=== PATIENT | male | born 1965 | race Caucasian/White ===

== ENCOUNTER → 2019-08-09 09:30 | Outpatient (CLI) | payer MEDICARE, MEDICAID, SELFPAY ==
--- NOTE | 2019-08-09 09:37 | US_ITS ---
APPROVED REPORT Exam Type: Lower Extremity Segmental Pressures Network Support Specialist: Rylee Hdez RDCS Indications Claudication: Rest Pain: Numbness/Tingling PAD Current Smoker History of Smoking Pressures/Indices Right Indices Left Indices Brachial 126.00 mmHg Brachial 129.00 mmHg Low Thigh 90.00 mmHg 0.70 Low Thigh 77.00 mmHg 0.60 Calf 64.00 mmHg 0.50 Calf 46.00 mmHg 0.36 Ankle(PT) 40.00 mmHg 0.31 Ankle(PT) 35.00 mmHg 0.27 Ankle(DP) 86.00 mmHg 0.67 Ankle(DP) 34.00 mmHg 0.26 Digit 46.00 mmHg 0.36 Digit 24.00 mmHg 0.19 Findings R JILLIAN .3 L JILLIAN .3 R TBI .4 L TBI .2 DIMINISHED PULSES AND WAVEFORMS CARDIOLOGY CALLED RESULTS Conclusion Low bilateral JILLIAN suggesting severe arterial disease Electronically signed by : Freddy Watkins MD 08/09/2019 19:02:57
== END ==
PROVIDERS: Visit Provider Internal Medicine
DX: I70.213 Atherosclerosis of native arteries of extremities with intermittent claudication, bilateral legs (principal)
CPT/HCPCS: 93923

== ENCOUNTER 2019-12-20 08:57 | Day surgery (SDC) | payer MEDICARE, MEDICAID, SELFPAY ==
[2019-12-20] VITALS (18 sets, daily range): BP systolic 95–123; BP diastolic 56–81; PULSE 55–79; RESP 16; TEMP 36.8; O2SAT 92–100; BMI 26.9
--- NOTE | 2019-12-20 | IR_ITS ---
APPROVED REPORT Patient Location: Outpatient [facility] Worker: CHUCK Mobley RT (R) PROCEDURES Catheter placed in the abdominal aorta Abdominal aortography Repositioning of the catheter in the abdominal aorta Lateral iliofemoral runoff INDICATION Peripheral artery disease, [place] class III-IV claudication left leg, Known peripheral artery stents in the aortoiliac area Informed consent was obtained prior to the procedure. COMPLICATIONS none Estimated Blood Loss: less than 10 mls TECHNIQUE 1% lidocaine used anesthetize the right groin the right femoral artery was accessed via the Salinger technique and a 5 Mong[place]ian sheath this patient the right femoral artery. A pigtail catheter was placed in the abdominal aorta and abdominal aortography was performed. The catheter was then repositioned and bilateral iliofemoral runoff was performed. At the end of the procedure the apparatus was removed the patient was transferred to the postop holding area in stable condition for sheath removal ANGIOGRAPHIC RESULTS The bilateral renal arteries are singular and normal The infrarenal abdominal aorta is calcified atheromatous with diffuse 30% stenosis The right common iliac artery has a stent in its mid segment which is widely patent free of in-stent restenosis. It transitions nicely into the external iliac artery which also has a stent which is widely patent with mild in-stent restenosis. The internal iliac artery is patent. The right common femoral artery has mild [id number] atheromatous plaque. The profunda femoris artery is widely patent. The right superficial femoral artery is ostially occluded and occluded throughout its entire course. It reconstitutes at the popliteal level from profunda femoris collaterals. The popliteal artery has a mid vessel 30% stenosis. Distally there appears to be three-vessel runoff below the knee. The left common iliac artery is calcified has a proximal 30% stenosis. The left internal iliac artery is patent. The left external iliac artery has a stent in its mid segment which is widely patent with excellent proximal distal transitioning and mild in-stent restenosis. The left common femoral artery has an eccentric 40 to 50% stenosis. The left superficial femoral artery is proximally occluded and is densely calcified throughout its entire course. The left profunda femoris artery is widely patent and collateralizes a severely diseased proximal and mid vessel popliteal artery. The midportion of the popliteal artery is small caliber but is patent with mild atheromatous plaque. Distally the anterior tibialis artery has ostial and proximal high-grade greater than 70% stenoses. This is a small caliber vessel. The peroneal artery is also subtotally occluded proximally as is the left posterior tibialis artery. 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 Recommend medical management. The superficial femoral arteries are small caliber severely diffusely diseased and long-term patency would be abysmal. Because of the very poor long-term patency I do not recommend any form of revascularization of the left superficial femoral arteries. 2. Patient must discontinue tobacco usage and engage in an aggressive physical therapy program in order to salvage his legs 3. Recommend Xarelto 2.5 twice
[2019-12-20 09:43] LABS: Basophils # 0.1 K/mm3 (0-0.2); Basophils % 0.5 % (0.1-2.0); Eosinophils # 0.3 K/mm3 (0.0-0.4); Eosinophils % 2.8 % (0.1-12.0); Hematocrit 42.1 % (42.0-52.0); Hemoglobin 14.1 g/dL (14.1-18.0); Lymphocytes # 3.5 K/mm3 (0.7-4.5); Lymphocytes % 36.2 % (10-50); Mean Corpuscular HGB Conc 33.4 g/dL (31.8-35.4); Mean Corpuscular Hemoglobin 29.9 pg (27.0-31.2); Mean Corpuscular Volume 89.6 fl (80-94); Mean Platelet Volume 7.6 fl (7.4-10.4); Monocytes # 0.4 K/mm3 (0.1-1.0); Monocytes % 4.4 % (1.7-9.3); Neutrophils # 5.5 K/mm3 (1.8-7.8); Platelet Count 246 K/mm3 (142-424); Red Cell Distribution Width 14.1 % (11.5-17.5); White Blood Count 9.8 K/mm3 (4.8-10.8)
[2019-12-20 09:53] LABS: Chloride 104 mmol/L (98-107); Sodium 136 mmol/L (136-145)
[2019-12-20 09:54] LABS: Potassium 4.1 mmoL/L (3.5-5.1)
[2019-12-20 09:57] LABS: Anion Gap 11.1 mEq/L (5-15); Blood Urea Nitrogen 12 mg/dl (9-20); Calcium 9.5 mg/dl (8.4-10.2); Carbon Dioxide 25 mmol/L (22.0-30.0); Creatinine Clearance Estimated 66 mL/min (50-200); Estimated Glomerular Filt Rate 63 ml/min (>60); GFR (African American) 76 ML/MIN (>60); Glucose 113 mg/dl (74-100)
== END 2019-12-20 15:00 | disposition home or self-care (01) ==
LOC: CATHLAB 08:59
PROVIDERS: PCP Family Medicine; Visit Provider Internal Medicine
DX: I70.223 Atherosclerosis of native arteries of extremities with rest pain, bilateral legs (principal); I25.10 Atherosclerotic heart disease of native coronary artery without angina pectoris; Z72.0 Tobacco use; T82.856A Stenosis of peripheral vascular stent, initial encounter; Z79.01 Long term (current) use of anticoagulants; Z95.820 Peripheral vascular angioplasty status with implants and grafts; I10 Essential (primary) hypertension; I77.1 Stricture of artery
CPT/HCPCS: 36252; 75716; 80048; 85025; 99152; C1725; C1769; C1894; J1644; Q9966

== ENCOUNTER → 2020-01-20 06:51 | Outpatient (CLI) | payer MEDICARE, MEDICAID, SELFPAY ==
--- NOTE | 2020-01-20 06:59 | NM_ITS ---
APPROVED REPORT Exam: Nuclear Stress Test Indication: short of breath..fatigue Patient Location: Outpatient Stress Tech: Lolis Apple OR Tech:Bree MusaCHUCK RT(R)(N) Ht: 5 ft 2 in Wt: 140 lbs HR: 63 bpm BP: 131/70 mmHg BSA: 1.64 m2 BMI: 25.6 History: short of breath..fatigue.. hx of bilateral leg stents Procedure: Patient received a 0.4 mg of intravenous Lexiscan, resting heart rate 63 bpm, resting blood pressure 131/70 mmHg, with Lexiscan maximum heart rate achived was 106 bpm which is Less than 85 % of the maximum predicted heart rate and blood pressure was 106/70 mmHg. With Lexiscan, patient denied any complaint of chest pain. Electrocardiogram Resting electrocardiogram showed sinus rhythm, with Lexiscan there is less than 1.[address] segment depression noted from the baseline EKG. The EKG portion of the Lexiscan is nondiagnostic. Cardiac Stress and Resting SPECT Images: Cardiac Stress and Resting SPECT images were obtained using technetium 99m Myoview 30.4 mCi stress and 10.18 mCi at rest. Gated SPECT with analysis of segmental wall motion and calculation of the ejection fraction also done. Cardiac stress and resting SPECT images show uniform myocardial activity without segmental perfusion abnormality, computer derived ejection fraction is 50% with no regional wall motion abnormality, right ventricle is normal size and contractility, however there is transient ischemic dilatation of the left ventricle seen, raising the concern for presence of balanced ischemia and multivessel coronary artery disease. Conclusion: 1. The EKG portion of the Lexiscan Myoview is nondiagnostic. 2. No scintigraphic evidence of reversible ischemia seen, computer derived ejection fraction 50% with no regional wall motion abnormality, right ventricle is normal size and contractility, however there is transient ischemic dilatation of the left ventricle seen, raising the concerns for presence of balanced ischemia and multivessel coronary artery disease. 3. Abnormal Lexiscan Myoview study. Electronically signed by : Rj Barreto, 01/20/2020 13:53:55
--- NOTE | 2020-01-20 07:19 | CA_ITS ---
APPROVED REPORT EXAM: Comprehensive 2D, Doppler, and color-flow Echocardiogram Mammalogist: Rylee Hdez RDCS Ht: 5 ft 2 in Wt: 149lbs BSA: 1.69 BP: 92/76 mmHg Indications: SMOKER,GONZALES,PAD,HTN,HLP 2D Dimensions LVOT 1.67 cm (M/F) 1.5-2.5 M-Mode Dimensions RVDd 2.58 cm (0.9-2.6) LVDd 5.39 cm (3.5-5.7) LVDs 4.31 cm (3.5-5.7) IVSd 0.72 cm (0.6-1.1) PWd 0.56 cm (0.6-1.1) EF (Teich) 40.70% FS 20.00% EDV (Teich) 140.70 mL ESV (Teich) 83.50 mL LV Diastology E/A Ratio 1.31 Mitral Valve MV A Velocity 43.00 (40-130 cm/s) Left Ventricle Left atrium is mildly enlarged, left ventricle is normal size, there is no concentric left ventricular hypertrophy, visually estimated ejection fraction 55% with no regional wall motion abnormality, diastolic parameters are within normal range. Right Ventricle Right atrium and right ventricular normal size and contractility. Aortic Valve Aortic valve is minimally thickened and fibrosed, there is no aortic stenosis or aortic insufficiency. Mitral Valve Mitral valve is grossly normal, there is mild mitral regurgitation. Tricuspid Valve Tricuspid valve is grossly normal, there is mild tricuspid regurgitation, tricuspid regurgitation jet velocity is inadequate for calculation of the right ventricular systolic pressure. Pulmonic Valve Pulmonic valve is poorly visualized. Great Vessels Aortic root is normal size. Pericardium No significant pericardial effusion noted. Conclusion 1. Mildly enlarged left atrium, normal left ventricular size, visually estimated ejection fraction 55% with no regional wall motion abnormality, diastolic parameters are within normal range. 2. Mild mitral and tricuspid regurgitation. 3. No significant pericardial effusion noted. Electronically signed by : Rj Barreto, 01/20/2020 15:14:29
--- NOTE | 2020-01-20 09:09 | HMH.ITSHM ---
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 [] AMLODIPINE ATORVASTATIN XARELTO ASP
--- NOTE | 2020-01-20 10:13 | CA_ITS ---
APPROVED REPORT Exam: Pharmacologic Technologist: Lolis Apple, Ht: 5 ft 2 in Wt: 140 lbs BSA: 1.64 m2 Indications: SOA Medical History Medical History: HTN, Hyperlipidemia, Smoking Medications: Aspirin,,,,, Gabapentin,,,,, Atorvastatin,,,,, AmOLODIPNE,,,,, RIvaROXABAN,,,,, Varenicline,,,,, Cardiac Risk Factors: HTN, Hyperlipidemia, Smoking Stress Test Details Test: LEXISCAN Reason for pharmacologic stress test: physical limitation. HR Resting HR: 66 bpm Max Heart Rate (APMHR): 166 bpm Max HR Achieved: 112 bpm Target HR (85% APMHR): 141 bpm % of APMHR: 67 BP Resting BP: 131/70 mmHg Max BP: 131/70 mmHg ECG Clinical Exercise duration: 04:02 min Highest Stage Achieved: Exercise capacity: 1.0 METs Stress ECG Conclusion positive for SOA, Malaise, Nausea no CP Rare PVC NS ST-T changes unremarkable Lexiscan Stress myoview images reported separately Electronically signed by : Rj Barreto, 01/20/2020 13:50:53
== END ==
PROVIDERS: PCP Family Medicine; Visit Provider Nurse Practitioner Family
DX: F17.200 Nicotine dependence, unspecified, uncomplicated (principal); I10 Essential (primary) hypertension; I73.9 Peripheral vascular disease, unspecified; R06.00 Dyspnea, unspecified; R20.8 Other disturbances of skin sensation
CPT/HCPCS: 78452; 93017; 93306; A9502; J2785

== ENCOUNTER → 2020-02-15 11:09 | Outpatient (CLI) | payer MEDICARE, MEDICAID, SELFPAY ==
--- NOTE | 2020-02-15 11:13 | US_ITS ---
APPROVED REPORT Exam Type: Lower Extremity Segmental Pressures Framing And Hanging: Rylee Hdez RDCS Indications Claudication: Rest Pain: Numbness/Tingling Current Smoker History of Smoking Pressures/Indices Right Indices Left Indices Brachial 132.00 mmHg Brachial 134.00 mmHg Low Thigh 77.00 mmHg 0.57 Low Thigh 51.00 mmHg 0.38 Calf 60.00 mmHg 0.45 Calf 55.00 mmHg 0.41 Ankle(PT) 60.00 mmHg 0.45 Ankle(PT) 33.00 mmHg 0.25 Ankle(DP) 42.00 mmHg 0.31 Ankle(DP) 24.00 mmHg 0.18 Digit 55.00 mmHg 0.41 Digit 12.00 mmHg 0.09 Findings DIMINISHED PULSES AND WAVEFORMS BILATERALLY LEFT DIGIT VERY DIMINISHED IN WAVEFORMS R JILLIAN .5 L JILLIAN .3 R TBI .4 L TBI .09 CALLED TO [facility]'S OFFICE Conclusion DIMINISHED PULSES AND WAVEFORMS BILATERALLY LEFT DIGIT VERY DIMINISHED IN WAVEFORMS R JILLIAN .5 L JILLIAN .3 R TBI .4 L TBI .09 SEVERE BILAT ARTERIAL DISEASE CALLED TO IVONNE'S OFFICE Electronically signed by : Freddy Watkins MD 02/15/2020 15:36:07
== END ==
PROVIDERS: PCP Family Medicine; Visit Provider Podiatrist
DX: I73.9 Peripheral vascular disease, unspecified (principal); R09.89 Other specified symptoms and signs involving the circulatory and respiratory systems
CPT/HCPCS: 93923

== ENCOUNTER 2023-12-22 18:00 | Outpatient (CLI) | payer MEDICARE, SELFPAY ==
[2023-12-22 18:46] LABS: Basophils # 0.1 K/mm3 (0-0.2); Basophils % 0.8 % (0.1-2.0); Eosinophils % 0.4 % (0.1-12.0); Hematocrit 53.3 % (42.0-52.0); Hemoglobin 16.7 g/dL (14.1-18.0); Lymphocytes # 2.1 K/mm3 (0.7-4.5); Lymphocytes % 20.9 % (10-50); Mean Corpuscular HGB Conc 31.4 g/dL (31.8-35.4); Mean Corpuscular Hemoglobin 29.5 pg (27.0-31.2); Mean Platelet Volume 9.2 fl (7.4-10.4); Monocytes # 0.6 K/mm3 (0.1-1.0); Monocytes % 5.7 % (1.7-9.3); Neutrophils # 7.3 K/mm3 (1.8-7.8); Neutrophils % 72.2 % (37.0-80.0); Platelet Count 249 K/mm3 (142-424); Red Blood Count 5.67 M/mm3 (4.60-6.20); Red Cell Distribution Width 14.6 % (11.5-17.5); White Blood Count 10.1 K/mm3 (4.8-10.8)
[2023-12-22 19:31] LABS: Alanine Aminotransferase 30 U/L (12-78); Albumin Level 4.6 g/dl (3.5-5.0); Albumin/Globulin Ratio 1.1 (1.1-1.8); Alkaline Phosphatase 88 U/L (38-126); Anion Gap 19.2 mEq/L (5-15); Aspartate Amino Transferase 42 U/L (17-59); Bilirubin,Total 1.1 mg/dl (0.2-1.3); Blood Urea Nitrogen 10 mg/dl (9-20); Calcium 9.9 mg/dl (8.4-10.2); Carbon Dioxide 24 mmol/L (22.0-30.0); Chloride 100 mmol/L (98-107); Chol/HDL Ratio 2.3 (1-3.5); Cholesterol 158 mg/dl (140-200); Estimated Glomerular Filt Rate 69 ml/min (>60); GFR (African American) 83 ML/MIN (>60); Globulin 4.1 g/dL (1.3-3.2); Glucose 97 mg/dl (74-100); HDL Cholesterol 68 mg/dl (40-60); Potassium 4.2 mmoL/L (3.5-5.1); Sodium 139 mmol/L (136-145); Total Protein,Serum 8.7 g/dl (6.3-8.2); Triglycerides 70 mg/dl (30-150); VLDL Cholesterol 14 mg/dL (0-40)
[2023-12-22 19:43] LABS: Direct LDL Cholesterol 68.89 mg/dL (100-129)
[2023-12-22 20:01] LABS: Prostate Specific Ag Screen 0.5 ng/ml (0.0-4.0)
== END 2023-12-22 23:59 | disposition home or self-care (01) ==
LOC: LAB.DROPOF 12-23 08:56
PROVIDERS: PCP Family Medicine; Visit Provider Family Medicine
DX: I10 Essential (primary) hypertension (principal); I73.9 Peripheral vascular disease, unspecified; R20.2 Paresthesia of skin; R20.0 Anesthesia of skin; Z12.5 Encounter for screening for malignant neoplasm of prostate; F17.210 Nicotine dependence, cigarettes, uncomplicated
CPT/HCPCS: 80053; 80061; 85025; G0103